=== PATIENT | male | born 1975 | race American Indian/Alaskan Native ===

== ENCOUNTER 2018-03-01 00:55 | Inpatient (IN) | payer MEDICARE, OTHER ==
[2018-03-01 01:12] VITALS: BMI 23.8
[2018-03-01] MEDS ORDERED: DiphenhydrAMINE 50 mg/ml Inj IM STA (02:11)
[2018-03-01 02:38] LABS: BASO # 0.01 K/mm3 (0.0-2.0); BASO % 0.2 % (0.0-3.0); EOS # 0.1 (0.0-0.7); EOS % 0.8 % (1.5-5.0); GRAN # 4.06 (1.4-6.5); GRAN % 67.6 % (50.0-68.0); HEMOGLOBIN 16.2 g/dL (14.0-18.0); LYMPH # 1.6 (1.2-3.4); LYMPH % 26.6 % (22.0-35.0); MEAN CELL VOLUME 80.8 fl (80.0-105.0); MEAN CORPUSCULAR HEMOGLOBIN 28.6 pg (25.0-35.0); MEAN CORPUSCULAR HGB CONC 35.4 g/dl (31.0-37.0); MEAN PLATELET VOLUME 9.7 fl (7.0-11.0); MONO # 0.3 (0.1-0.6); MONO % 4.8 % (1.0-6.0); RBC 5.67 10^6/uL (3.5-6.1); RED CELL DISTRIBUTION WIDTH 12.2 % (11.5-14.5)
[2018-03-01 02:47] LABS: ACETAMINOPHEN < 10.0 ug/ml (10.0-20.0); SALICYLATE < 1 mg/dL (2.0-20.0)
[2018-03-01 02:48] LABS: ALB/GLOB RATIO 1.3 (1.1-1.8); ALBUMIN 4.8 g/dL (3.0-4.8); ALT/SGPT 55 U/L (7-56); AST/SGOT 40 U/L (17-59); BLOOD UREA NITROGEN 9 mg/dL (7-21); CALCIUM 10.2 mg/dL (8.4-10.5); GFR AFRICAN-AMERICAN > 60; GFR NON-AFRICAN AMERICAN > 60
[2018-03-01 03:00] LABS: INR 0.93 (0.93-1.08); PROTHROMBIN TIME 10.6 SECONDS (9.4-12.5)
[2018-03-01] MEDS ORDERED: Lidocaine 1% Inj (20ml) SC STA (05:46)
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
[2018-03-01] MEDS ORDERED: TDAP Vaccine 0.5 mL Syr IM ONE (06:06)
[2018-03-01 06:44] LABS: BARBITURATES, UR NEGATIVE (NEGATIVE); BENZODIAZEPINES, UR NEGATIVE (NEGATIVE); OPIATES, UR NEGATIVE (NEGATIVE); PHENCYCLIDINE, UR NEGATIVE (NEGATIVE)
--- NOTE | 2018-03-01 08:08 | RAD ---
HISTORY: MEDICAL CLEARANCE COMPARISON: No prior. FINDINGS: LUNGS: No active pulmonary disease. PLEURA: No significant pleural effusion identified, no pneumothorax apparent. CARDIOVASCULAR: Normal. OSSEOUS STRUCTURES: No significant abnormalities. VISUALIZED UPPER ABDOMEN: Normal. OTHER FINDINGS: None. IMPRESSION: No acute cardiopulmonary disease appreciated.
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
[2018-03-01] MEDS ORDERED: Multivitamin (MVI) 10 ML, Thiamine 100 MG, Folic Acid 1 MG in Sodium Chloride 0.9% 1,00... IV ONE ×2 (10:56→23:20)
[2018-03-01] MEDS ORDERED: Thiamine 100 mg/ml Inj IM STA (10:57)
[2018-03-01 11:43] LABS: FREE T4 1.45 ng/dL (0.78-2.19)
[2018-03-01] MEDS: Insulin Lispro (humaLOG) LOW Coverage SC SCH ×3 (12:30→23:12)
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
--- NOTE | 2018-03-01 16:18 | CP.PCM.CON ---
History of Present Illness - History of Present Illness History of Present Illness: SPINE CONSULT Pt seen and examined. Full consult dictated. Robinson-J collar ordered. Pt may be OOB and ambulate once cleared to do so. Must wear collar 21/06 for 2-3 months. Other option is surgery but pt would lose >50% of lateral rotation as well as flexion/extension with posterior fusion. Therefore will try bracing and see pt in 1 week for f/u x-ray of C-spine Past Patient History - Past Social History Smoking Status: Smoker Currrent Status Unknown - PSYCHIATRIC Hx Substance Use: No Meds Allergies/Adverse Reactions: Allergies Allergy/AdvReac Type Severity Reaction Status Date / Time Unobtainable Allergy Verified 03/01/18 01:47 - Medications Medications: Current Medications Heparin Sodium (Porcine) (Heparin) 5,000 units SC Q12 JMAES PRN Reason: Protocol Multivitamins/Vitamin C 10 ml/Thiamine HCl 100 mg/ Folic Acid 1 mg/ Sodium Chloride 1,011.2 mls @ 100 mls/hr IV .Q10H7M ONE Stop: 03/01/18 21:02 Last Admin: 03/01/18 12:38 Dose: 100 mls/hr Insulin Human Lispro (Humalog Low) 0 units SC ACHS JAMES PRN Reason: Protocol Last Admin: 03/01/18 12:30 Dose: 3 units Lorazepam (Ativan) 2 mg IVP Q6H PRN; Protocol PRN Reason: Anxiety Neomycin/Polymyxin/Bacitracin (Neosporin Triple Antibiotic Oint) 0 gm TOP BID [facility] Pantoprazole Sodium (Protonix Ec Tab) 40 mg PO 0600 [facility] Results - Vital Signs Recent Vital Signs: Last Vital Signs Temp 98.2 F 03/01/18 10:16 Pulse 78 03/01/18 10:50 Resp 16 03/01/18 10:50 BP 121/76 03/01/18 10:50 Pulse Ox 99 03/01/18 10:50 - Labs Result Diagrams: 03/01/18 02:25 03/01/18 02:25 Labs: Laboratory Results - last 24 hr 03/01/18 03/01/18 12:08 15:58 POC Glucose (mg/dL) 294 H 181 H
[2018-03-01] MEDS ORDERED: Pneumococcal 23-Valent Vaccine IM ONE (17:13)
[2018-03-01] MEDS: Bacitracin/Neomycin/Polymyxin Oint(30GM) TOP SCH (17:27)
--- NOTE | 2018-03-01 19:19 | CARD ---
APPROVED REPORT EKG Measurement Heart [id number] <Conclusion> Sinus tachycardia Septal infarct, age undetermined Abnormal ECG
[2018-03-02] MEDS: Pantoprazole 40 mg EC Tab PO SCH (05:28)
[2018-03-02 07:25] LABS: BASO # 0.01 K/mm3 (0.0-2.0); BASO % 0.1 % (0.0-3.0); EOS # 0.1 (0.0-0.7); EOS % 1.2 % (1.5-5.0); GRAN % 59.4 % (50.0-68.0); HEMOGLOBIN 13.7 g/dL (14.0-18.0); LYMPH # 2.1 (1.2-3.4); LYMPH % 31.4 % (22.0-35.0); MEAN CELL VOLUME 80.7 fl (80.0-105.0); MEAN CORPUSCULAR HEMOGLOBIN 28.1 pg (25.0-35.0); MEAN CORPUSCULAR HGB CONC 34.8 g/dl (31.0-37.0); MEAN PLATELET VOLUME 9.6 fl (7.0-11.0); MONO # 0.5 (0.1-0.6); MONO % 7.9 % (1.0-6.0); RBC 4.88 10^6/uL (3.5-6.1); RED CELL DISTRIBUTION WIDTH 12.2 % (11.5-14.5); WHITE BLOOD COUNT 6.7 10^3/ul (4.5-11.0)
[2018-03-02 07:26] LABS: ALB/GLOB RATIO 1.2 (1.1-1.8); ALBUMIN 3.6 g/dL (3.0-4.8); ALT/SGPT 39 U/L (7-56); AST/SGOT 37 U/L (17-59); BLOOD UREA NITROGEN 14 mg/dL (7-21); CALCIUM 9.5 mg/dL (8.4-10.5); GFR AFRICAN-AMERICAN > 60; GFR NON-AFRICAN AMERICAN > 60
--- NOTE | 2018-03-02 08:22 | CON ---
DATE: 03/01/2018 REASON FOR CONSULTATION: Fracture of C1. HISTORY OF PRESENT ILLNESS: Patient is a 42-year young gentleman who states he had a lot to drink last night and passed out and fell. He states he does not recall anything that happened earlier in the day. He states this is not the first time he has passed out after drinking. He presently is not complaining of any pain. The workup in the emergency room with a CAT scan demonstrated a fracture of C1. Therefore, this consultation was requested. PAST MEDICAL HISTORY: Significant for diabetes. He states he is on metformin and glipizide at home. He states he was diagnosed when he was 15, although the medical records states he was diagnosed 10 years ago. MEDICATIONS: Otherwise, he states he is on no prescription medications. ALLERGIES: HE HAS NO KNOWN ALLERGIES. PAST SURGICAL HISTORY: No past surgical history. SOCIAL HISTORY: He states he smokes half a pack of cigarettes a day and he has been doing that since he was 15. He states he only drinks beer, but does it on a daily basis. Denies any other drug usage. PHYSICAL EXAMINATION: He is in a hard collar. He is moving both upper and lower extremities actively. He has significant amount of swelling around his left eye with bruising on his face. LABORATORY DATA: Patient had CAT of his cervical spine done this morning. It demonstrates fractures of the anterior ring of C1. There is some anterior displacement. C2 still seems to be centered within the C1 ring, so that there is no obvious disruption of the ligaments there. IMPRESSION AND PLAN: At this point, his fracture should heal with good immobilization. Obviously, there has to be a concern given his drinking. I explained to him that his fracture may be slow to heal or not heal given his diabetes, but that will be true also if we do surgery in terms of the bone fusing as well as the wound healing. Also, at his young age, he would lose over half of his ability to laterally rotate his head if we had to do an occiput to C2 or C3 fusion and he would also lose a fair amount of upward and downward gaze. Therefore, we will place him in a [place] J collar, which he must wear multimedia artist. He should be seen in a week with a recheck x-ray and be certain that he is maintaining his overall alignment. We will probably want to get a followup CAT scan in 6 to 8 weeks to be certain that again he is maintaining alignment and see if we start to see any appearance of healing taking place. I explained this to him in the presence of his one-to-one observer. He seemed to understand everything I was telling him and did not ask any questions. Once he has a collar on, he can be mobilized as tolerated and can be discharged once he is cleared. Thank you for allowing me to participate in the care of your patient. Demetris Hobson MD [facility]
[2018-03-02] MEDS: Bacitracin/Neomycin/Polymyxin Oint(30GM) TOP SCH ×2 (08:55→18:10)
[2018-03-02] MEDS: Insulin Lispro (humaLOG) LOW Coverage SC SCH ×4 (10:55→22:24)
--- NOTE | 2018-03-02 15:03 | CP.PCM.PN ---
<RashardAldo - Last Filed: 03/02/18 14:56> Subjective - Date & Time of Evaluation Date of Evaluation: 03/02/18 Time of Evaluation: 14:57 - Subjective Subjective: Medicine progress note: Patient seen and examined at bedside. Patient has C-collar in place. [place] collar will arrive tomorrow. Patient himself has no complaints, but per nursing , patient was getting agitated and trying to pull out his iv. Currently patient states that his pain is improved and he would like some ice chips. Objective - Vital Signs/Intake and Output Vital Signs (last 24 hours): Temp Pulse Resp BP Pulse Ox 98 F 82 20 162/90 H 97 03/02/18 08:03 03/02/18 08:03 03/02/18 08:03 03/02/18 08:03 03/02/18 08:03 Intake and Output: 03/02/18 03/02/18 06:59 18:59 Intake Total 1200 Balance 1200 - Medications Medications: Current Medications Heparin Sodium (Porcine) (Heparin) 5,000 units SC Q12 JAMES PRN Reason: Protocol Last Admin: 03/02/18 10:56 Dose: 5,000 units Insulin Human Lispro (Humalog Low) 0 units SC ACHS JAMES PRN Reason: Protocol Last Admin: 03/02/18 10:55 Dose: Not Given Lorazepam (Ativan) 2 mg IVP Q4 PRN; Protocol PRN Reason: Anxiety Last Admin: 03/02/18 01:14 Dose: 2 mg Neomycin/Polymyxin/Bacitracin (Neosporin Triple Antibiotic Oint) 0 gm TOP BID [facility] Last Admin: 03/01/18 17:27 Dose: 1 applic Pantoprazole Sodium (Protonix Ec Tab) 40 mg PO 0600 [facility] Last Admin: 03/02/18 05:28 Dose: Not Given - Labs Labs: 03/02/18 06:40 03/02/18 06:40 PT 10.6 SECONDS (9.4-12.5) 03/01/18 02:25 INR 0.93 (0.93-1.08) 03/01/18 02:25 - Constitutional Appears: Well - Head Exam Head Exam: ATRAUMATIC, NORMAL INSPECTION, NORMOCEPHALIC - Eye Exam Eye Exam: EOMI, Normal appearance, PERRL Pupil Exam: NORMAL ACCOMODATION, PERRL - ENT Exam ENT Exam: Mucous Membranes Moist, Normal Exam - Neck Exam Neck Exam: Full ROM, Normal Inspection. absent: Lymphadenopathy - Respiratory Exam Respiratory Exam: Clear to Ausculation Bilateral, NORMAL BREATHING PATTERN - Cardiovascular Exam Cardiovascular Exam: REGULAR RHYTHM, +S1, +S2. absent: Murmur - GI/Abdominal Exam GI & Abdominal Exam: Soft, Normal Bowel Sounds. absent: Tenderness - Extremities Exam Extremities Exam: Full ROM, Normal Capillary Refill, Normal Inspection. absent : Joint Swelling, Pedal Edema - Back Exam Back Exam: NORMAL INSPECTION - Neurological Exam Neurological Exam: Alert, Awake, CN II-XII Intact, Normal Gait, Oriented x3 - Psychiatric Exam Psychiatric exam: Normal Affect, Normal Mood - Skin Skin Exam: Dry, Intact, Normal Color, Warm Assessment and Plan - Assessment and Plan (Free Text) Assessment: Assessment and Plan 42 year old male with Diabetes (x 10 years) and ETOH abuse (started around this New Year) was found sleeping on the pavement. Patient admitted to drinking a large amount of alcohol. He was brought in by EMS. He sustained an abrasion on the L eye. Patient endorsed that he fell on his face and denies getting into a fight. A C1 fracture was found, patient needs rigid collar until [place] collar arrives per neurosurgery and spine surgery. Patient became agitated in the ED. He was given 5 haldol 2 ativan, on 1:1 watch. Comminuted displaced anterior C1 fracture. - C-spine CT: Comminuted displaced fracture of anterior arch of C1. No subluxation or encroachment of spinal canal. - Dr. Rojo, ED, endorsed that Dr. Day, neurosurgeon, stated that no plan for surgery and he would see the patient in the afternoon. - Neuro check q4 - Patient will be on hard collar until [place] collar arrives tomorrow; no surgery right now, as a fusion would result in decreased flexion, extension, and lateral movement Will do collar trial for 2-3 months L Nasal bone fractures, non displaced, with facial swelling - NPO with ice chips until cleared by speech/swallow therapist - ENT consulted because per PATIENT ACCESS DIRECTOR recommendations, patient still having trouble swallowing ENT: Dr. Forman Eyebrow laceration s/p suture - Triple Antibiotic ointment BID ETOH abuse - SHAINA 277 - CIWA q4 - Banana bag - Ativan 2q4 PRN - Starting tomorrow AM, Ativan 1 q6 JAMES - ETOH cessation counseling. Consider providing AA materials - 1:1 maintained for agitation - aspiration/fall precaution Diabetes - Pending A1C - ISSS-low Falls likely secondary to ETOH abuse - PT eval Bilateral proptosis - outpatient workup. Check TSH/Free t4. No retrobulbar hematoma on CT TSH: Low normal; FT4: normal HIV is negative Prophylaxis - heparin, protonix <Rangasamy,Ajantha - Last Filed: 03/02/18 17:50> Objective - Vital Signs/Intake and Output Vital Signs (last 24 hours): Temp Pulse Resp BP Pulse Ox 98.3 F 90 20 124/88 98 03/02/18 14:00 03/02/18 14:00 03/02/18 14:00 03/02/18 14:00 03/02/18 14:00 Intake and Output: 03/02/18 03/02/18 06:59 18:59 Intake Total 1200 Balance 1200 - Medications Medications: Current Medications Heparin Sodium (Porcine) (Heparin) 5,000 units SC Q12 JAMES PRN Reason: Protocol Last Admin: 03/02/18 10:56 Dose: 5,000 units Multivitamins/Vitamin C 10 ml/Thiamine HCl 100 mg/ Folic Acid 1 mg/ Sodium Chloride 1,011.2 mls @ 100 mls/hr IV .Q10H7M ONE Stop: 03/03/18 02:42 Insulin Human Lispro (Humalog Low) 0 units SC ACHS JAMES PRN Reason: Protocol Last Admin: 03/02/18 16:20 Dose: Not Given Lorazepam (Ativan) 2 mg IVP Q4 PRN; Protocol PRN Reason: Anxiety Last Admin: 03/02/18 01:14 Dose: 2 mg Lorazepam (Ativan) 1 mg IVP Q6H JAMES PRN Reason: Protocol Neomycin/Polymyxin/Bacitracin (Neosporin Triple Antibiotic Oint) 0 gm TOP BID JAMES Last Admin: 03/01/18 17:27 Dose: 1 applic Pantoprazole Sodium (Protonix Ec Tab) 40 mg PO 0600 JAMES Last Admin: 03/02/18 05:28 Dose: Not Given - Labs Labs: 03/02/18 06:40 03/02/18 06:40 PT 10.6 SECONDS (9.4-12.5) 03/01/18 02:25 INR 0.93 (0.93-1.08) 03/01/18 02:25 Attending/Attestation - Attestation I have personally seen and examined this patient.: Yes I have fully participated in the care of the patient.: Yes I have reviewed all pertinent clinical information, including history, physical exam and plan: Yes Notes (Text): 03/02/18 17:49 attending note; Patient seen and examined with resident. Patient is a 42 year old male with PMHx diabetes and alcohol abuse, multiple falls previously is admitted with fall after intoxication. CT head is negative. CT maxillofacial is negative. Patient had C1 cervical spine fracture. Spine surgery evaluation appreciated. [place] J collar ordered. Keep patient nothing by mouth. Speech and swallow evaluation appreciated. ENT evaluation recommended. Left eyelid swelling. Monitor closely. Alcohol abuse; complete alcohol cessation is strongly advised. CIWA Protocol. continue IV banana bag. Continue IV Ativan when necessary. No neurological deficit. Continue one-to-one for observation.
[2018-03-02] MEDS ORDERED: Multivitamin (MVI) 10 ML, Thiamine 100 MG, Folic Acid 1 MG in Sodium Chloride 0.9% 1,00... IV ONE (16:36)
--- NOTE | 2018-03-03 02:50 | CON ---
DATE: HISTORY OF PRESENT ILLNESS: This is a 42-year-old male with a significant past medical history of diabetes and alcohol use, was found passed out on the ground after a fall, questionable passing out versus tripping with loss of consciousness and a noted significant C-spine deformity with significant swelling of the left eye and nose. Patient was admitted to the hospital and seen here in consultation as stated. RADIOGRAPHIC INFORMATION: CAT scan as noted was done and reveals a normal nasal bone and facial bone without fracture as stated; this was on 03/01/2018. CT of maxillofacial bones without contrast, no comparison and nasal bones were unremarkable. There is soft tissue swelling in anterior left orbit, palpable with no maxillary and/or facial bone fractures. Patient is seen at his bedside with continued left facial swelling. Normal nasal dorsum with mild left-sided swelling, patent nasal vestibule with a midline septum. Neck was noted to be in collar, soft on palpation without crepitus. Left-sided eye swelling, as stated on CT, without visual complaint. MEDICATIONS: He states he is on no prescription medications. ALLERGIES: HE HAS NO KNOWN ALLERGIES. PAST SURGICAL HISTORY: No past surgical history. SOCIAL HISTORY: He states he smokes half a pack of cigarettes a day and has been doing that since he was 15. He states he is only drinking beer, but does it on a daily basis. As stated on his physical exam as noted above and at the time of the exam, a neck collar was noted for retraction. CAT scan of the cervical spine demonstrates fracture of the anterior ring of C1 and a consultation from Neurosurgery secondary to that fracture site and progress note from primary medical doctor. Patient at this particular point does deny any type of difficulty with swallowing and the supple neck. PHYSICAL EXAMINATION: VITAL SIGNS: Temperature 98, pulse 82, respiratory rate 20, blood pressure 160/90, pulse ox of 90. CONSTITUTION: Appears well, but he is depressed and quiet. HEENT: Normocephalic, left eye swelling, but eye noted to be intact with rotation. No cranial deficits noted and midline nose with patent vestibule and midline septum. Consultation from ENT stated nasal bone fracture, nondisplaced. No surgical reduction needed at this time. PLAN: Recommendation for the patient as an outpatient to follow up in the office if needed. At this particular point, there is no further following of this patient and we will follow as an outpatient as discussed. Trevor Forman DO [facility] # [id number]
[2018-03-03] MEDS: Pantoprazole 40 mg EC Tab PO SCH (05:00)
[2018-03-03 07:10] LABS: BASO # 0.01 K/mm3 (0.0-2.0); BASO % 0.1 % (0.0-3.0); EOS # 0.2 (0.0-0.7); EOS % 2.5 % (1.5-5.0); GRAN # 4.06 (1.4-6.5); GRAN % 60.6 % (50.0-68.0); HEMOGLOBIN 13.3 g/dL (14.0-18.0); LYMPH # 1.9 (1.2-3.4); LYMPH % 27.7 % (22.0-35.0); MEAN CORPUSCULAR HEMOGLOBIN 27.5 pg (25.0-35.0); MEAN PLATELET VOLUME 9.4 fl (7.0-11.0); MONO # 0.6 (0.1-0.6); MONO % 9.1 % (1.0-6.0); RBC 4.83 10^6/uL (3.5-6.1); WHITE BLOOD COUNT 6.7 10^3/ul (4.5-11.0)
[2018-03-03 07:12] LABS: ALB/GLOB RATIO 1.1 (1.1-1.8); ALBUMIN 3.5 g/dL (3.0-4.8); ALT/SGPT 35 U/L (7-56); AST/SGOT 33 U/L (17-59); BLOOD UREA NITROGEN 14 mg/dL (7-21); CALCIUM 9.7 mg/dL (8.4-10.5); GFR AFRICAN-AMERICAN > 60; GFR NON-AFRICAN AMERICAN > 60
[2018-03-03] MEDS ORDERED: Multivitamin (MVI) 10 ML, Thiamine 100 MG, Folic Acid 1 MG in Sodium Chloride 0.9% 1,00... IV ONE (07:45)
[2018-03-03] MEDS ORDERED: Magnesium Sulfate 2 GM in Sodium Chloride 0.9% 100 ML IV ONE (09:11)
[2018-03-03] MEDS: Insulin Lispro (humaLOG) LOW Coverage SC SCH ×4 (10:03→22:38)
[2018-03-03] MEDS: Bacitracin/Neomycin/Polymyxin Oint(30GM) TOP SCH ×2 (10:04→18:36)
--- NOTE | 2018-03-03 13:47 | CP.PCM.PN ---
<RashardAldo - Last Filed: 03/03/18 13:25> Subjective - Date & Time of Evaluation Date of Evaluation: 03/03/18 Time of Evaluation: 13:25 - Subjective Subjective: Medicine progress note: Dr. Moser Patient seen and examined at bedside. Per nursing, patient was getting agitated overnight, pulling at his IV and C-collar. One prn ativan dose was given around 2A. Patient still getting agitated on and off, but is not demonstarting signs of withdrawal. Patient denies any acute complaints besides mild pain Objective - Vital Signs/Intake and Output Vital Signs (last 24 hours): Temp Pulse Resp BP Pulse Ox 98.2 F 87 20 129/58 L 99 03/03/18 06:00 03/03/18 06:00 03/03/18 06:00 03/03/18 06:00 03/03/18 06:00 Intake and Output: 03/03/18 03/03/18 06:59 18:59 Intake Total 1200 Balance 1200 - Medications Medications: Current Medications Heparin Sodium (Porcine) (Heparin) 5,000 units SC Q12 JAMES PRN Reason: Protocol Last Admin: 03/03/18 10:02 Dose: 5,000 units Multivitamins/Vitamin C 10 ml/Thiamine HCl 100 mg/ Folic Acid 1 mg/ Sodium Chloride 1,011.2 mls @ 100 mls/hr IV .Q10H7M ONE Stop: 03/03/18 17:51 Last Admin: 03/03/18 10:03 Dose: 100 mls/hr Potassium Chloride (Potassium Chloride 10 Meq/100 Ml) 10 meq in 100 mls @ 50 mls/hr IVPB Q4H JAMES Stop: 03/03/18 13:59 Last Admin: 03/03/18 09:00 Dose: 50 mls/hr Insulin Human Lispro (Humalog Low) 0 units SC ACHS JAMES PRN Reason: Protocol Last Admin: 03/03/18 10:03 Dose: Not Given Lorazepam (Ativan) 2 mg IVP Q4 PRN; Protocol PRN Reason: Anxiety Last Admin: 03/03/18 02:16 Dose: 2 mg Lorazepam (Ativan) 1 mg IVP Q6H JAMES PRN Reason: Protocol Last Admin: 03/03/18 08:25 Dose: 1 mg Neomycin/Polymyxin/Bacitracin (Neosporin Triple Antibiotic Oint) 0 gm TOP BID [facility] Last Admin: 03/03/18 10:04 Dose: 1 applic Pantoprazole Sodium (Protonix Ec Tab) 40 mg PO 0600 [facility] Last Admin: 03/03/18 05:00 Dose: Not Given - Labs Labs: 03/03/18 06:30 03/03/18 06:30 PT 10.6 SECONDS (9.4-12.5) 03/01/18 02:25 INR 0.93 (0.93-1.08) 03/01/18 02:25 - Constitutional Appears: Well - Head Exam Head Exam: ATRAUMATIC, NORMAL INSPECTION, NORMOCEPHALIC - Eye Exam Eye Exam: EOMI, Periorbital tenderness, PERRL. absent: Normal appearance ( Patient has bilateral periocular bruises), Nystagmus Pupil Exam: NORMAL ACCOMODATION, PERRL - ENT Exam ENT Exam: Mucous Membranes Moist, Normal Exam - Neck Exam Neck Exam: Full ROM. absent: Lymphadenopathy, Normal Inspection (Patient has C- collar in place) - Respiratory Exam Respiratory Exam: Clear to Ausculation Bilateral, NORMAL BREATHING PATTERN - Cardiovascular Exam Cardiovascular Exam: REGULAR RHYTHM, +S1, +S2. absent: Murmur - GI/Abdominal Exam GI & Abdominal Exam: Soft, Normal Bowel Sounds. absent: Tenderness - Extremities Exam Extremities Exam: Full ROM, Normal Capillary Refill, Normal Inspection. absent : Joint Swelling, Pedal Edema - Back Exam Back Exam: NORMAL INSPECTION - Neurological Exam Neurological Exam: Alert, Awake, CN II-XII Intact, Normal Gait, Oriented x3 - Psychiatric Exam Psychiatric exam: Normal Affect, Normal Mood - Skin Skin Exam: Dry, Intact, Normal Color, Warm Assessment and Plan - Assessment and Plan (Free Text) Assessment: Assessment and Plan 42 year old male with Diabetes (x 10 years) and ETOH abuse (started around this New Year) was found sleeping on the pavement. Patient admitted to drinking a large amount of alcohol. He was brought in by EMS. He sustained an abrasion on the L eye. Patient endorsed that he fell on his face and denies getting into a fight. A C1 fracture was found, patient needs rigid collar until [place] collar arrives per neurosurgery and spine surgery. Patient became agitated in the ED. He was given 5 haldol 2 ativan, on 1:1 watch. Comminuted displaced anterior C1 fracture. - C-spine CT: Comminuted displaced fracture of anterior arch of C1. No subluxation or encroachment of spinal canal. - Dr. Day, neurosurgeon: no plan for surgery - Neuro check q4 - Patient on hard collar until [place] band collar arrives; no surgery right now- fusion will decreased flexion, extension, and lateral movement Will do collar trial for 2-3 months L Nasal bone fractures, non displaced, with facial swelling - ENT consulted because per SMALL EQUIPMENT OPERATOR recommendations, patient still having trouble swallowing ENT: Dr. Forman: No acute interventions. Per Dr. Forman, patient not having trouble swallowing - Speech and swallow saw patient, passed swallow eval, carb consistent started Eyebrow laceration s/p suture - Triple Antibiotic ointment BID History of Alcohol Abuse - SHAINA 277 on admission - CIWA q4 - Banana bag - finished - Ativan 2q4 PRN, Ativan 1 q6 JAMES - Alcohol Cessation counseling. Consider providing AA materials - 1:1 maintained for agitation - aspiration/fall precaution Diabetes - Pending A1C - ISSS-low Falls likely secondary to ETOH abuse - PT eval Bilateral proptosis - outpatient workup. Check TSH/Free t4. No retrobulbar hematoma on CT TSH: Low normal; FT4: normal HIV is negative Prophylaxis - heparin, protonix Dispo: Patient will be monitored overnight for withdrawals pending [place] collar. Most likely stable for discharge tomorrow <Disha Moser - Last Filed: 03/03/18 16:53> Objective - Vital Signs/Intake and Output Vital Signs (last 24 hours): Temp Pulse Resp BP Pulse Ox 97.6 F 88 20 135/85 100 03/03/18 14:00 03/03/18 14:00 03/03/18 14:00 03/03/18 14:00 03/03/18 14:00 Intake and Output: 03/03/18 03/03/18 06:59 18:59 Intake Total 1200 Balance 1200 - Medications Medications: Current Medications Heparin Sodium (Porcine) (Heparin) 5,000 units SC Q12 JAMES PRN Reason: Protocol Last Admin: 03/03/18 10:02 Dose: 5,000 units Multivitamins/Vitamin C 10 ml/Thiamine HCl 100 mg/ Folic Acid 1 mg/ Sodium Chloride 1,011.2 mls @ 100 mls/hr IV .Q10H7M ONE Stop: 03/03/18 17:51 Last Admin: 03/03/18 10:03 Dose: 100 mls/hr Insulin Human Lispro (Humalog Low) 0 units SC ACHS JAMES PRN Reason: Protocol Last Admin: 03/03/18 14:18 Dose: Not Given Lorazepam (Ativan) 2 mg IVP Q4 PRN; Protocol PRN Reason: Anxiety Last Admin: 03/03/18 02:16 Dose: 2 mg Lorazepam (Ativan) 1 mg IVP Q6H JAMES PRN Reason: Protocol Last Admin: 03/03/18 14:17 Dose: 1 mg Neomycin/Polymyxin/Bacitracin (Neosporin Triple Antibiotic Oint) 0 gm TOP BID [facility] Last Admin: 03/03/18 10:04 Dose: 1 applic Pantoprazole Sodium (Protonix Ec Tab) 40 mg PO 0600 [facility] Last Admin: 03/03/18 05:00 Dose: Not Given - Labs Labs: 03/03/18 06:30 03/03/18 06:30 PT 10.6 SECONDS (9.4-12.5) 03/01/18 02:25 INR 0.93 (0.93-1.08) 03/01/18 02:25 Attending/Attestation - Attestation I have personally seen and examined this patient.: Yes I have fully participated in the care of the patient.: Yes I have reviewed all pertinent clinical information, including history, physical exam and plan: Yes Notes (Text): 03/03/18 16:50 attending note; Patient seen and examined with resident. Patient is a 42 year old male with PMHx diabetes and alcohol abuse, multiple falls previously is admitted with fall after intoxication. CT head is negative. CT maxillofacial is negative. Patient had C1 cervical spine fracture. Spine surgery evaluation appreciated. Speech and swallow evaluation appreciated. Continue regular diet with aspiration precaution. ENT evaluation appreciated. Alcohol abuse; complete alcohol cessation is strongly advised. CIWA Protocol. continue IV banana bag. Continue IV Ativan when necessary. Patient was agitated last night. But currently comfortable with new collar. No neurological deficit. Physical therapy evaluation requested. Possible discharge tomorrow if clinically stable. Upon discharge the patient needs follow-up with [facility]. Patient needs repeat x-ray in 1 week and follow up with neurosurgery.
[2018-03-04] MEDS: Pantoprazole 40 mg EC Tab PO SCH (06:07)
[2018-03-04 07:26] LABS: BASO # 0.01 K/mm3 (0.0-2.0); BASO % 0.2 % (0.0-3.0); EOS # 0.2 (0.0-0.7); EOS % 3.1 % (1.5-5.0); GRAN # 3.83 (1.4-6.5); HEMOGLOBIN 13.1 g/dL (14.0-18.0); LYMPH # 1.4 (1.2-3.4); LYMPH % 23.2 % (22.0-35.0); MEAN CELL VOLUME 80.3 fl (80.0-105.0); MEAN CORPUSCULAR HEMOGLOBIN 27.7 pg (25.0-35.0); MEAN CORPUSCULAR HGB CONC 34.5 g/dl (31.0-37.0); MEAN PLATELET VOLUME 9.7 fl (7.0-11.0); MONO # 0.6 (0.1-0.6); MONO % 10.5 % (1.0-6.0); RBC 4.73 10^6/uL (3.5-6.1); RED CELL DISTRIBUTION WIDTH 11.8 % (11.5-14.5); WHITE BLOOD COUNT 6.1 10^3/ul (4.5-11.0)
[2018-03-04 07:52] LABS: BLOOD UREA NITROGEN 9 mg/dL (7-21); CALCIUM 9.2 mg/dL (8.4-10.5); GFR AFRICAN-AMERICAN > 60; GFR NON-AFRICAN AMERICAN > 60
[2018-03-04] MEDS ORDERED: Potassium Chloride 20 mEq ER Tab PO ONE (08:19)
[2018-03-04] MEDS ORDERED: Magnesium Sulfate 2 GM in Sodium Chloride 0.9% 100 ML IV ONE (08:19)
[2018-03-04] MEDS: Insulin Lispro (humaLOG) LOW Coverage SC SCH ×4 (08:28→21:39)
[2018-03-04] MEDS: Bacitracin/Neomycin/Polymyxin Oint(30GM) TOP SCH ×2 (10:03→16:59)
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
--- NOTE | 2018-03-04 12:53 | PCM.RRT ---
INDUSTRIAL SERVICE TECHNICIAN Nurse Assessment - Situation Date: 03/04/18 Time INDUSTRIAL SERVICE TECHNICIAN was called: 11:50 INDUSTRIAL SERVICE TECHNICIAN Location:: [address] [place] [address] INDUSTRIAL SERVICE TECHNICIAN Called By: RN - IV IV Inserted during INDUSTRIAL SERVICE TECHNICIAN?: No - Respiratory Oxygen Delivery Method: Room Air Received Nebulizer Treatments:: No Was the Patient Ventilated with Bag/Mask 100% O2?: No Secretions Suctioned?: No Was the Patient Intubated?: No Was the Patient Placed on a Ventilator?: No - Diagnostic Test Ordered EKG: No Chest X-Ray: No CT Scan: No CPR started during INDUSTRIAL SERVICE TECHNICIAN?: No - Odd Coma Scale Coma Scale Eye Opening: Spontaneous Coma Scale Motor: Obeys Commands Movement Coma Scale Verbal: Oriented I.Reason for INDUSTRIAL SERVICE TECHNICIAN - A) Acute Change in Patient: Subjective: Patient was using bathroom and metal bar fell on his chest. It was witnessed by RN. No head trauma to patient. Patient denies loss of bowel, bladder; denies nausea or dizziness, denies any dizziness before the incident. - Neurological Status (Select all that apply): Alert, Responsive, Oriented, Verbal, Follows Commands - Respiratory Oxygen Delivery Method: Room Air - Constitutional Appears: Well, Non-toxic, No Acute Distress - Head Head Exam: ATRAUMATIC, NORMAL INSPECTION, NORMOCEPHALIC Additional Comments: I have been following patient, he has C-collar in place and multiple abrasions and contusions periorbitally, but these are all old, he has no new facial or head injuries - Eyes Eye Exam: Normal appearance, PERRL - Respiratory Exam Respiratory Exam: Clear to Ausculation Bilateral, NORMAL BREATHING PATTERN. absent: Chest Wall Tenderness - Cardiovascular Exam Cardiovascular Exam: REGULAR RHYTHM - GI/Abdominal Exam GI & Abdominal Exam: Soft, Normal Bowel Sounds. absent: Rigid, Tenderness - Neurological Exam Neurological Exam: Alert, Awake, CN II-XII Intact, Normal Gait, Oriented x3. absent: Motor Sensory Deficit - Extremities Exam Extremities Exam: Full ROM, Normal Capillary Refill, Normal Inspection Plan - Assessment of Findings&Treatment Plan 42 year old male status post bar falling on his chest. Patient denies any injury and any pain. Patient is breathing normally, patient denies any hemoptysis. Neurologically intact. No new injuries. Plan - Monitor - Neurochecks are on q4 - Will reassess the patient in two hours
--- NOTE | 2018-03-04 13:29 | CP.PCM.PN ---
Subjective - Date & Time of Evaluation Date of Evaluation: 03/04/18 Time of Evaluation: 13:26 - Subjective Subjective: pt seen and examined in bed with c collar, mild pain head left scientologist. Denies further ent issues Review of Systems - Constitutional Constitutional: absent: Fever, Chills - EENT Eyes: As Per HPI, UNREMARKABLE Ears: As Per HPI, UNREMARKABLE Nose/Mouth/Throat: As Per HPI - Cardiovascular Cardiovascular: As Per HPI - Respiratory Respiratory: As Per HPI - Musculoskeletal Musculoskeletal: As Par HPI - Integumentary Integumentary: As Per HPI - Neurological Neurological: As Per HPI Objective - Vital Signs/Intake and Output Vital Signs (last 24 hours): Temp Pulse Resp BP Pulse Ox 98 F 85 20 133/99 H 99 03/04/18 06:00 03/04/18 06:00 03/04/18 06:00 03/04/18 06:00 03/04/18 06:00 Intake and Output: 03/04/18 03/04/18 06:59 18:59 Intake Total 1200 Balance 1200 - Medications Medications: Current Medications Acetaminophen (Tylenol 325mg Tab) 650 mg PO Q6H PRN PRN Reason: Pain, Mild (1-3) Last Admin: 03/04/18 09:58 Dose: 650 mg Heparin Sodium (Porcine) (Heparin) 5,000 units SC Q12 JAMES PRN Reason: Protocol Last Admin: 03/04/18 09:56 Dose: 5,000 units Insulin Human Lispro (Humalog Low) 0 units SC ACHS JAMES PRN Reason: Protocol Last Admin: 03/04/18 12:17 Dose: 3 units Lorazepam (Ativan) 2 mg IVP Q4 PRN; Protocol PRN Reason: Anxiety Last Admin: 03/03/18 22:21 Dose: 2 mg Lorazepam (Ativan) 1 mg IVP Q6H JAMES PRN Reason: Protocol Last Admin: 03/04/18 08:28 Dose: 1 mg Lorazepam (Ativan) 1 mg PO Q6H JAMES PRN Reason: Protocol Methadone HCl (Methadone) 10 mg PO TID PRN PRN Reason: Pain, moderate (4-7) Neomycin/Polymyxin/Bacitracin (Neosporin Triple Antibiotic Oint) 0 gm TOP BID [facility] Last Admin: 03/04/18 10:03 Dose: 1 applic Nicotine (Nicoderm Cq) 1 patch TD DAILY [facility] Last Admin: 03/04/18 12:17 Dose: 1 patch Pantoprazole Sodium (Protonix Ec Tab) 40 mg PO 0600 [facility] Last Admin: 03/04/18 06:07 Dose: Not Given - Labs Labs: 03/04/18 06:45 03/04/18 06:45 PT 10.6 SECONDS (9.4-12.5) 03/01/18 02:25 INR 0.93 (0.93-1.08) 03/01/18 02:25 - Constitutional Appears: Well, Non-toxic - Head Exam Additional comments: swelling left scientologist, with laceration - Eye Exam Eye Exam: EOMI, Normal appearance, PERRL Pupil Exam: NORMAL ACCOMODATION, PERRL - ENT Exam ENT Exam: Mucous Membranes Moist - Neck Exam Additional comments: c collar - Respiratory Exam Respiratory Exam: NORMAL BREATHING PATTERN Assessment and Plan (1) Alcohol intoxication Status: Acute (2) C1 cervical fracture Status: Acute (3) Eyebrow laceration Status: Acute (4) Nasal bone fracture Status: Acute (5) Contusion of head Status: Acute - Assessment and Plan (Free Text) Plan: conservative management and ice. will monitor
[2018-03-05] MEDS: Pantoprazole 40 mg EC Tab PO SCH (05:48)
[2018-03-05 07:25] LABS: BASO # 0.01 K/mm3 (0.0-2.0); BASO % 0.2 % (0.0-3.0); EOS # 0.2 (0.0-0.7); EOS % 3.5 % (1.5-5.0); GRAN # 3.07 (1.4-6.5); HEMOGLOBIN 13.4 g/dL (14.0-18.0); LYMPH # 1.6 (1.2-3.4); LYMPH % 28.9 % (22.0-35.0); MEAN CELL VOLUME 79.8 fl (80.0-105.0); MEAN CORPUSCULAR HEMOGLOBIN 27.4 pg (25.0-35.0); MEAN CORPUSCULAR HGB CONC 34.4 g/dl (31.0-37.0); MEAN PLATELET VOLUME 9.3 fl (7.0-11.0); MONO # 0.6 (0.1-0.6); MONO % 10.4 % (1.0-6.0); RBC 4.89 10^6/uL (3.5-6.1); RED CELL DISTRIBUTION WIDTH 11.7 % (11.5-14.5); WHITE BLOOD COUNT 5.4 10^3/ul (4.5-11.0)
[2018-03-05 07:48] LABS: ALB/GLOB RATIO 1.2 (1.1-1.8); ALBUMIN 3.5 g/dL (3.0-4.8); ALT/SGPT 32 U/L (7-56); AST/SGOT 26 U/L (17-59); BLOOD UREA NITROGEN 7 mg/dL (7-21); CALCIUM 9.5 mg/dL (8.4-10.5); GFR AFRICAN-AMERICAN > 60; GFR NON-AFRICAN AMERICAN > 60
[2018-03-05] MEDS: Insulin Lispro (humaLOG) LOW Coverage SC SCH ×4 (08:29→22:04)
[2018-03-05] MEDS: Bacitracin/Neomycin/Polymyxin Oint(30GM) TOP SCH ×2 (10:04→17:29)
--- NOTE | 2018-03-05 14:47 | CP.PCM.PN ---
<Santosh Lua - Last Filed: 03/05/18 14:44> Subjective - Date & Time of Evaluation Date of Evaluation: 03/05/18 Time of Evaluation: 14:44 - Subjective Subjective: Medicine Progress Note: Patient seen and assessed at bedside. Patient was noted to have pulled out his IV access overnight and refused further IV access be obtained. Patient is without complaints at this time and denies fevers, chills, headache, changes in his vision, chest pain, SOB, cough, abdominal pain, N/V/D/C, changes in urinary color/frequency, dysuria, any skin changes or any numbness/tingling/weakness of any extremity. Objective - Vital Signs/Intake and Output Vital Signs (last 24 hours): Temp Pulse Resp BP Pulse Ox 98.2 F 63 20 127/89 100 03/05/18 08:00 03/05/18 08:00 03/05/18 08:00 03/05/18 08:00 03/05/18 08:00 - Medications Medications: Current Medications Acetaminophen (Tylenol 325mg Tab) 650 mg PO Q6H PRN PRN Reason: Pain, Mild (1-3) Last Admin: 03/05/18 09:59 Dose: 650 mg Folic Acid (Folic Acid) 1 mg PO DAILY [facility] Heparin Sodium (Porcine) (Heparin) 5,000 units SC Q12 JAMES PRN Reason: Protocol Last Admin: 03/05/18 09:59 Dose: 5,000 units Insulin Human Lispro (Humalog Low) 0 units SC ACHS [facility] PRN Reason: Protocol Last Admin: 03/05/18 08:29 Dose: 1 units Lorazepam (Ativan) 1 mg PO Q6H JAMES PRN Reason: Protocol Last Admin: 03/05/18 08:28 Dose: 1 mg Multivitamins/Minerals (Therapeutic-M Tab) 1 tab PO 0800 [facility] Neomycin/Polymyxin/Bacitracin (Neosporin Triple Antibiotic Oint) 0 gm TOP BID [facility] Last Admin: 03/05/18 10:04 Dose: 1 applic Nicotine (Nicoderm Cq) 1 patch TD DAILY [facility] Last Admin: 03/05/18 09:59 Dose: 1 patch Pantoprazole Sodium (Protonix Ec Tab) 40 mg PO 0600 [facility] Last Admin: 03/05/18 05:48 Dose: Not Given Thiamine HCl (Vitamin B1 Tab) 100 mg PO DAILY [facility] - Labs Labs: 03/05/18 07:00 03/05/18 07:00 PT 10.6 SECONDS (9.4-12.5) 03/01/18 02:25 INR 0.93 (0.93-1.08) 03/01/18 02:25 - Constitutional Appears: Non-toxic, No Acute Distress - Head Exam Head Exam: NORMOCEPHALIC. absent: ATRAUMATIC (Erythema and edema to left supraorbital ridge with noted interval improvement), NORMAL INSPECTION - Eye Exam Eye Exam: EOMI. absent: Normal appearance Pupil Exam: NORMAL ACCOMODATION, PERRL - ENT Exam ENT Exam: Mucous Membranes Moist, Normal Exam - Neck Exam Neck Exam: absent: Full ROM (Collar in place), Normal Inspection - Respiratory Exam Respiratory Exam: Clear to Ausculation Bilateral, NORMAL BREATHING PATTERN. absent: Accessory Muscle Use, Rales, Rhonchi, Wheezes - Cardiovascular Exam Cardiovascular Exam: REGULAR RHYTHM, RRR, +S1, +S2. absent: Bradycardia, Tachycardia, Clicks, Diastolic murmur, Gallop, Irregular Rhythm, JVD, Rubs, +S4 , Murmur - GI/Abdominal Exam GI & Abdominal Exam: Soft, Normal Bowel Sounds. absent: Tenderness - Extremities Exam Extremities Exam: Full ROM, Normal Capillary Refill, Normal Inspection. absent : Calf Tenderness, Joint Swelling, Pedal Edema, Tenderness - Neurological Exam Neurological Exam: Alert, Awake, CN II-XII Intact, Oriented x3 - Psychiatric Exam Psychiatric exam: Normal Affect, Normal Mood - Skin Skin Exam: Intact, Warm Assessment and Plan - Assessment and Plan (Free Text) Assessment: 42 year old AA male with a past medical history significant for DM2 and alcohol abuse who was admitted after sustaining a fracture of C1 s/p fall and acute alcohol intoxication. Plan: 1. Comminuted Displaced Anterior Fracture of C1 s/p Fall -CT Cervical Spine showed comminuted displaced fracture of anterior arch of C1 without subluxation or encroachment of spinal canal -CT Maxillofacial and CT Head negative for any other acute intracranial findings -Continue cervical collar for duration of two to three months -Continue Tylenol PRN for pain control -Continue Bacitracin ointment and wound care for superficial lacerations -Neurochecks Q4 -Patient to follow up with Neurosurgery one week after discharge for repeat Cervical Spine X-Ray -Neurosurgery and ENT consulted, all recommendations appreciated -PT/OT recommending MIRELA upon discharge 2. Alcohol Abuse/Withdrawal -Serum Alcohol (on admission): 277 -Continue Ativan 1mg PO Q6H -Continue PO supplementation of folic acid, thiamine and -Continue CIWA assessments -Continue fall and aspiration precautions -Continue 1:1 observation as needed 3. History of DM2 -ISS-Low and Accuchecks ACHS -Carbohydrate Consistent Diet -Hemoglobin A1c: 12.6 -Will need outpatient follow up upon discharge 4. History of Tobacco Abuse -Continue Nicoderm CQ GI Prophylaxis: Protonix DVT Prophylaxis: Heparin Patient seen and case discussed with attending, Dr. Moser. <Disha Moser - Last Filed: 03/05/18 16:31> Objective - Vital Signs/Intake and Output Vital Signs (last 24 hours): Temp Pulse Resp BP Pulse Ox 98.2 F 63 20 127/89 100 03/05/18 08:00 03/05/18 08:00 03/05/18 08:00 03/05/18 08:00 03/05/18 08:00 Intake and Output: 03/05/18 03/05/18 06:59 18:59 Intake Total 1260 Output Total 1625 Balance -365 - Medications Medications: Current Medications Acetaminophen (Tylenol 325mg Tab) 650 mg PO Q6H PRN PRN Reason: Pain, Mild (1-3) Last Admin: 03/05/18 09:59 Dose: 650 mg Folic Acid (Folic Acid) 1 mg PO DAILY [facility] Heparin Sodium (Porcine) (Heparin) 5,000 units SC Q12 JAMES PRN Reason: Protocol Last Admin: 03/05/18 09:59 Dose: 5,000 units Insulin Human Lispro (Humalog Low) 0 units SC ACHS [facility] PRN Reason: Protocol Last Admin: 03/05/18 12:30 Dose: 3 units Lorazepam (Ativan) 1 mg PO Q4 PRN; Protocol PRN Reason: Agitation Multivitamins/Minerals (Therapeutic-M Tab) 1 tab PO 0800 [facility] Neomycin/Polymyxin/Bacitracin (Neosporin Triple Antibiotic Oint) 0 gm TOP BID [facility] Last Admin: 03/05/18 10:04 Dose: 1 applic Nicotine (Nicoderm Cq) 1 patch TD DAILY [facility] Last Admin: 03/05/18 09:59 Dose: 1 patch Pantoprazole Sodium (Protonix Ec Tab) 40 mg PO 0600 [facility] Last Admin: 03/05/18 05:48 Dose: Not Given Thiamine HCl (Vitamin B1 Tab) 100 mg PO DAILY [facility] - Labs Labs: 03/05/18 07:00 03/05/18 07:00 PT 10.6 SECONDS (9.4-12.5) 03/01/18 02:25 INR 0.93 (0.93-1.08) 03/01/18 02:25 Attending/Attestation - Attestation I have personally seen and examined this patient.: Yes I have fully participated in the care of the patient.: Yes I have reviewed all pertinent clinical information, including history, physical exam and plan: Yes Notes (Text): 03/05/18 16:31 attending note; Patient seen and examined with resident. Patient is a 42 year old male with PMHx diabetes and alcohol abuse, multiple falls previously is admitted with fall after intoxication. CT head is negative. CT maxillofacial is negative. Patient had C1 cervical spine fracture. Spine surgery evaluation appreciated. Speech and swallow evaluation appreciated. Continue regular diet with aspiration precaution. ENT evaluation appreciated. Continue conservative management. Alcohol abuse; complete alcohol cessation is strongly advised. CIWA Protocol. continue IV banana bag. Continue IV Ativan when necessary. Patient was agitated last night. But currently comfortable with new collar. No neurological deficit. Physical therapy evaluation appreciated. Unsteady on gait. Monitor closely.
[2018-03-06] MEDS: Pantoprazole 40 mg EC Tab PO SCH (06:23)
[2018-03-06] MEDS: Multivitamin With Minerals Tab PO SCH (08:55)
[2018-03-06] MEDS: Insulin Lispro (humaLOG) LOW Coverage SC SCH ×4 (09:00→21:52)
[2018-03-06] MEDS: Bacitracin/Neomycin/Polymyxin Oint(30GM) TOP SCH ×2 (09:10→17:55)
--- NOTE | 2018-03-06 10:43 | CP.PCM.PN ---
<Santosh Lua - Last Filed: 03/06/18 10:40> Subjective - Date & Time of Evaluation Date of Evaluation: 03/06/18 Time of Evaluation: 10:40 - Subjective Subjective: Medicine Progress Note: Patient seen and assessed at bedside. No acute events noted overnight by patient or nursing staff. Patient notably with more participation in conversation with medicine team. States he has had similar alcohol induced falls in the past, including two years ago when he was in a rehab facility for one year. Patient is without complaints at this time and denies fevers, chills, headache, changes in his vision, chest pain, SOB, cough, abdominal pain, N/V/D/C , changes in urinary color/frequency, dysuria, any skin changes or any numbness/ tingling/weakness of any extremity. Objective - Vital Signs/Intake and Output Vital Signs (last 24 hours): Temp Pulse Resp BP Pulse Ox 98 F 87 20 121/86 96 03/06/18 06:00 03/06/18 06:00 03/06/18 06:00 03/06/18 06:00 03/06/18 06:00 - Medications Medications: Current Medications Acetaminophen (Tylenol 325mg Tab) 650 mg PO Q6H PRN PRN Reason: Pain, Mild (1-3) Last Admin: 03/05/18 17:28 Dose: 650 mg Folic Acid (Folic Acid) 1 mg PO DAILY [facility] Last Admin: 03/06/18 09:01 Dose: 1 mg Heparin Sodium (Porcine) (Heparin) 5,000 units SC Q12 [facility] PRN Reason: Protocol Last Admin: 03/06/18 09:01 Dose: 5,000 units Insulin Human Lispro (Humalog Low) 0 units SC ACHS [facility] PRN Reason: Protocol Last Admin: 03/06/18 09:00 Dose: 3 units Lorazepam (Ativan) 1 mg PO Q4 PRN; Protocol PRN Reason: Agitation Last Admin: 03/06/18 09:12 Dose: 1 mg Multivitamins/Minerals (Therapeutic-M Tab) 1 tab PO 0800 [facility] Last Admin: 03/06/18 08:55 Dose: 1 tab Neomycin/Polymyxin/Bacitracin (Neosporin Triple Antibiotic Oint) 0 gm TOP BID [facility] Last Admin: 03/06/18 09:10 Dose: 1 applic Nicotine (Nicoderm Cq) 1 patch TD DAILY [facility] Last Admin: 03/06/18 09:01 Dose: 1 patch Pantoprazole Sodium (Protonix Ec Tab) 40 mg PO 0600 [facility] Last Admin: 03/06/18 06:23 Dose: 40 mg Thiamine HCl (Vitamin B1 Tab) 100 mg PO DAILY [facility] Last Admin: 03/06/18 09:01 Dose: 100 mg - Labs Labs: 03/05/18 07:00 03/05/18 07:00 PT 10.6 SECONDS (9.4-12.5) 03/01/18 02:25 INR 0.93 (0.93-1.08) 03/01/18 02:25 - Constitutional Appears: Non-toxic, No Acute Distress - Head Exam Head Exam: NORMOCEPHALIC. absent: ATRAUMATIC (Left brow wound dressing clean, dry and intact) - Eye Exam Eye Exam: EOMI, Normal appearance Pupil Exam: NORMAL ACCOMODATION, PERRL Additional comments: Erythema and edema to left supraorbital ridge with noted interval improvement - ENT Exam ENT Exam: Mucous Membranes Moist, Normal Exam - Neck Exam Neck Exam: absent: Full ROM ([place] collar in place), Normal Inspection - Respiratory Exam Respiratory Exam: Clear to Ausculation Bilateral, NORMAL BREATHING PATTERN. absent: Accessory Muscle Use, Rales, Rhonchi, Wheezes - Cardiovascular Exam Cardiovascular Exam: REGULAR RHYTHM, RRR, +S1, +S2. absent: Bradycardia, Tachycardia, Clicks, Diastolic murmur, Gallop, Irregular Rhythm, JVD, Rubs, +S4 , Murmur - GI/Abdominal Exam GI & Abdominal Exam: Soft, Normal Bowel Sounds. absent: Distended, Firm, Guarding, Rigid, Tenderness, Rebound - Extremities Exam Extremities Exam: Full ROM, Normal Capillary Refill, Normal Inspection. absent : Calf Tenderness, Joint Swelling, Pedal Edema, Tenderness - Back Exam Back Exam: NORMAL INSPECTION - Neurological Exam Neurological Exam: Alert, Awake, Oriented x3 - Psychiatric Exam Psychiatric exam: Normal Affect, Normal Mood - Skin Skin Exam: Dry, Intact, Normal Color, Warm Assessment and Plan - Assessment and Plan (Free Text) Assessment: 42 year old AA male with a past medical history significant for DM2 and alcohol abuse who was admitted after sustaining a fracture of C1 s/p fall and acute alcohol intoxication. Plan: 1. Comminuted Displaced Anterior Fracture of C1 s/p Fall -CT Cervical Spine showed comminuted displaced fracture of anterior arch of C1 without subluxation or encroachment of spinal canal -CT Maxillofacial and CT Head negative for any other acute intracranial findings -Continue cervical collar ([place]) for duration of two to three months -Continue Tylenol PRN for pain control -Continue Bacitracin ointment and wound care for superficial lacerations -Neurochecks Q4 -Patient to follow up with Neurosurgery one week after discharge for repeat Cervical Spine X-Ray -Neurosurgery and ENT consulted, all recommendations appreciated -PT/OT recommending MIRELA upon discharge 2. Alcohol Abuse/Withdrawal -Serum Alcohol (on admission): 277 -Continue Ativan 1mg PO Q6H -Continue PO supplementation of folic acid, thiamine and -Continue CIWA assessments -Continue fall and aspiration precautions -Continue 1:1 observation as needed 3. History of DM2 -ISS-Low and Accuchecks ACHS -Carbohydrate Consistent Diet -Hemoglobin A1c: 12.6 -Will need outpatient follow up upon discharge 4. History of Tobacco Abuse -Continue Nicoderm CQ GI Prophylaxis: Protonix DVT Prophylaxis: Heparin Patient seen and case discussed with attending, Dr. Moser. <Disha Moser - Last Filed: 03/06/18 14:18> Objective - Vital Signs/Intake and Output Vital Signs (last 24 hours): Temp Pulse Resp BP Pulse Ox 98 F 87 20 121/86 96 03/06/18 06:00 03/06/18 06:00 03/06/18 06:00 03/06/18 06:00 03/06/18 06:00 - Medications Medications: Current Medications Acetaminophen (Tylenol 325mg Tab) 650 mg PO Q6H PRN PRN Reason: Pain, Mild (1-3) Last Admin: 03/05/18 17:28 Dose: 650 mg Folic Acid (Folic Acid) 1 mg PO DAILY [facility] Last Admin: 03/06/18 09:01 Dose: 1 mg Heparin Sodium (Porcine) (Heparin) 5,000 units SC Q12 [facility] PRN Reason: Protocol Last Admin: 03/06/18 09:01 Dose: 5,000 units Insulin Human Lispro (Humalog Low) 0 units SC ACHS [facility] PRN Reason: Protocol Last Admin: 03/06/18 12:44 Dose: 2 units Lorazepam (Ativan) 1 mg PO Q4 PRN; Protocol PRN Reason: Agitation Last Admin: 03/06/18 09:12 Dose: 1 mg Multivitamins/Minerals (Therapeutic-M Tab) 1 tab PO 0800 [facility] Last Admin: 03/06/18 08:55 Dose: 1 tab Neomycin/Polymyxin/Bacitracin (Neosporin Triple Antibiotic Oint) 0 gm TOP BID [facility] Last Admin: 03/06/18 09:10 Dose: 1 applic Nicotine (Nicoderm Cq) 1 patch TD DAILY [facility] Last Admin: 03/06/18 09:01 Dose: 1 patch Pantoprazole Sodium (Protonix Ec Tab) 40 mg PO 0600 [facility] Last Admin: 03/06/18 06:23 Dose: 40 mg Thiamine HCl (Vitamin B1 Tab) 100 mg PO DAILY [facility] Last Admin: 03/06/18 09:01 Dose: 100 mg - Labs Labs: 03/05/18 07:00 03/05/18 07:00 PT 10.6 SECONDS (9.4-12.5) 03/01/18 02:25 INR 0.93 (0.93-1.08) 03/01/18 02:25 Attending/Attestation - Attestation I have personally seen and examined this patient.: Yes I have fully participated in the care of the patient.: Yes I have reviewed all pertinent clinical information, including history, physical exam and plan: Yes Notes (Text): 03/06/18 14:17 attending note; Patient seen and examined with resident. Patient is a 42 year old male with PMHx diabetes and alcohol abuse, multiple falls previously is admitted with fall after intoxication. CT head is negative. CT maxillofacial is negative. Patient had C1 cervical spine fracture. Spine surgery evaluation appreciated. Speech and swallow evaluation appreciated. Continue regular diet with aspiration precaution. ENT evaluation appreciated. Continue conservative management. Alcohol abuse; complete alcohol cessation is strongly advised. CIWA Protocol. Continue by mouth Ativan. Patient is much calmer today. PT evaluation appreciated. Still unsteady on his gait. Subacute rehabilitation recommended. We will follow up with piano case maker and tomorrow for discharge planning. Physical therapy evaluation appreciated. Unsteady on gait. Monitor closely.
[2018-03-06 23:03] VITALS: RESP 20
[2018-03-07] MEDS: Pantoprazole 40 mg EC Tab PO SCH (05:21)
[2018-03-07 07:47] VITALS: BP 114/77; PULSE 87; TEMP 97.9; O2SAT 97
[2018-03-07] MEDS: Insulin Lispro (humaLOG) LOW Coverage SC SCH ×2 (08:11→14:33)
[2018-03-07] MEDS: Multivitamin With Minerals Tab PO SCH (09:48)
[2018-03-07] MEDS: Bacitracin/Neomycin/Polymyxin Oint(30GM) TOP SCH (09:53)
--- NOTE | 2018-03-07 12:46 | CP.PCM.DIS ---
<Jojo Klein - Last Filed: 03/07/18 17:56> Provider - Provider Date of Admission: 03/01/18 09:04 Attending physician: Disha Moser MD Consults: Neurosurgery - Dr. Day ENT - Dr. Forman Time Spent in preparation of Discharge (in minutes): 40 Diagnosis - Discharge Diagnosis (1) Alcohol intoxication Status: Resolved (2) C1 cervical fracture Status: Acute (3) Contusion of head Status: Resolved (4) Eyebrow laceration Status: Acute (5) Nasal bone fracture Status: Acute Hospital Course - Lab Results Lab Results: Most Recent Lab Values WBC 5.4 10^3/ul (4.5-11.0) 03/05/18 07:00 RBC 4.89 10^6/uL (3.5-6.1) 03/05/18 07:00 Hgb 13.4 g/dL (14.0-18.0) L 03/05/18 07:00 Hct 39.0 % (42.0-52.0) L 03/05/18 07:00 MCV 79.8 fl (80.0-105.0) L 03/05/18 07:00 MCH 27.4 pg (25.0-35.0) 03/05/18 07:00 MCHC 34.4 g/dl (31.0-37.0) 03/05/18 07:00 RDW 11.7 % (11.5-14.5) 03/05/18 07:00 Plt Count 206 10^3/uL (120.0-450.0) 03/05/18 07:00 MPV 9.3 fl (7.0-11.0) 03/05/18 07:00 Gran % 57.0 % (50.0-68.0) 03/05/18 07:00 Lymph % (Auto) 28.9 % (22.0-35.0) 03/05/18 07:00 [place] % (Auto) 10.4 % (1.0-6.0) H 03/05/18 07:00 Eos % (Auto) 3.5 % (1.5-5.0) 03/05/18 07:00 Baso % (Auto) 0.2 % (0.0-3.0) 03/05/18 07:00 Gran # 3.07 (1.4-6.5) 03/05/18 07:00 Lymph # (Auto) 1.6 (1.2-3.4) 03/05/18 07:00 [place] # (Auto) 0.6 (0.1-0.6) 03/05/18 07:00 Eos # (Auto) 0.2 (0.0-0.7) 03/05/18 07:00 Baso # (Auto) 0.01 K/mm3 (0.0-2.0) 03/05/18 07:00 PT 10.6 SECONDS (9.4-12.5) 03/01/18 02:25 INR 0.93 (0.93-1.08) 03/01/18 02:25 Sodium 136 mmol/L (132-148) 03/05/18 07:00 Potassium 3.8 mmol/L (3.6-5.0) 03/05/18 07:00 Chloride 101 mmol/L (98-107) 03/05/18 07:00 Carbon Dioxide 25 mmol/L (21-33) 03/05/18 07:00 Anion Gap 13 (10-20) 03/05/18 07:00 BUN 7 mg/dL (7-21) 03/05/18 07:00 Creatinine 0.6 mg/dl (0.8-1.5) L 03/05/18 07:00 Est GFR ( Amer) > 60 03/05/18 07:00 Est GFR (Non-Af Amer) > 60 03/05/18 07:00 POC Glucose (mg/dL) 247 mg/dL (65-110) H 03/07/18 11:35 Random Glucose 234 mg/dL (70-110) H 03/05/18 07:00 Hemoglobin A1c 12.6 % (4.2-6.5) H 03/01/18 10:30 Calcium 9.5 mg/dL (8.4-10.5) 03/05/18 07:00 Magnesium 1.6 mg/dL (1.7-2.2) L 03/05/18 07:00 Total Bilirubin 0.4 mg/dL (0.2-1.3) 03/05/18 07:00 AST 26 U/L (17-59) 03/05/18 07:00 ALT 32 U/L (7-56) 03/05/18 07:00 Alkaline Phosphatase 73 U/L (38-126) 03/05/18 07:00 Total Protein 6.6 g/dL (5.8-8.3) 03/05/18 07:00 Albumin 3.5 g/dL (3.0-4.8) 03/05/18 07:00 Globulin 3.1 gm/dL 03/05/18 07:00 Albumin/Globulin Ratio 1.2 (1.1-1.8) 03/05/18 07:00 Free T4 1.45 ng/dL (0.78-2.19) 03/01/18 02:25 TSH 3rd Generation 0.41 mIU/mL (0.46-4.68) L 03/01/18 02:25 Salicylates < 1 mg/dL (2.0-20.0) L 03/01/18 02:25 Urine Opiates Screen Negative (NEGATIVE) 03/01/18 06:03 Urine Methadone Screen Negative (NEGATIVE) 03/01/18 06:03 Acetaminophen < 10.0 ug/ml (10.0-20.0) L 03/01/18 02:25 Ur Barbiturates Screen Negative (NEGATIVE) 03/01/18 06:03 Ur Phencyclidine Scrn Negative (NEGATIVE) 03/01/18 06:03 Ur Amphetamines Screen Negative (NEGATIVE) 03/01/18 06:03 U Benzodiazepines Scrn Negative (NEGATIVE) 03/01/18 06:03 U Oth Cocaine Metabols Negative (NEGATIVE) 03/01/18 06:03 U Cannabinoids Screen Negative (NEGATIVE) 03/01/18 06:03 Alcohol, Quantitative 277 mg/dL (0-10) H 03/01/18 02:25 HIV 1&2 Antibody Screen Negative (NEGATIVE) 03/01/18 11:00 - Hospital Course Hospital Course: This patient is a 42 year old male with a PMHx of EtOH abuse and diabetes type 2 admitted for evaluation and treatment of C1 fracture s/p fall and acute alcohol intoxication/withdrawal. Cervical Spine CT showed comminuted displaced fracture of anterior arch of C1 without subluxation or encroachment of spinal canal. Maxillofacial and Head CT were negative for any other acute intracranial findings. Patient was placed on Ativan taper for alcohol withdrawal. Neurosurgery and ENT were consulted on the case. Patient was put on a Nikolski-J collar and was instructed to wear this collar 21/06 for 2-3 months per spine consult. Spine consult noted that surgery would cause a loss of more than 50% of lateral rotation as well as flexion/extension w/ posterior fusion. HgA1c was found to be > 12. Patient was started on Lantus, and his Metformin dose was changed to 500mg BID. Patient has been transferred to subacute rehab facility for physical therapy. Patient has been advised to follow up with his PCP and Neurosurgery within 1 week. He is agreeable to plan and medications. Patient discussed with Attending Discharge Exam - Head Exam Head Exam: NORMOCEPHALIC. absent: ATRAUMATIC (Left brow wound dressing clean, dry and intact) - Additional Findings Additional findings: - ENT Exam ENT Exam: Mucous Membranes Moist, Normal Exam - Neck Exam Neck Exam: absent: Full ROM ([place] collar in place), Normal Inspection - Respiratory Exam Respiratory Exam: Clear to Ausculation Bilateral, NORMAL BREATHING PATTERN. absent: Accessory Muscle Use, Rales, Rhonchi, Wheezes - Cardiovascular Exam Cardiovascular Exam: REGULAR RHYTHM, RRR, +S1, +S2. absent: Bradycardia, Tachycardia, Clicks, Diastolic murmur, Gallop, Irregular Rhythm, JVD, Rubs, +S4 , Murmur - GI/Abdominal Exam GI & Abdominal Exam: Soft, Normal Bowel Sounds. absent: Distended, Firm, Guarding, Rigid, Tenderness, Rebound - Extremities Exam Extremities Exam: Full ROM, Normal Capillary Refill, Normal Inspection. absent : Calf Tenderness, Joint Swelling, Pedal Edema, Tenderness - Back Exam Back Exam: NORMAL INSPECTION - Neurological Exam Neurological Exam: Alert, Awake, Oriented x3 - Psychiatric Exam Psychiatric exam: Normal Affect, Normal Mood - Skin Skin Exam: Dry, Intact, Normal Color, Warm Discharge Plan - Discharge Medications Prescriptions: Bacitracin/Neomycin/Polymyxin [Neosporin Triple Antibiotic Oint] 1 gm TOP BID # 1 tube Insulin Glargine, Recombina [Lantus] 5 unit SC HS #1 vial Metformin HCl [Glucophage] 500 mg PO BID #60 tablet - Follow Up Plan Condition: STABLE Disposition: TRANSF TO SNF Instructions: Nose Fracture, Neck Fracture, Type 1 Diabetes, Wound Care, Alcohol Withdrawal (DC), Alcohol Abuse and Alcoholism (DC) Additional Instructions: 1. Please follow up with the neurosurgeon who saw you here 2. Please follow up with the [facility] clinic 3. Please get a repeat neck x-ray in one week 4. Please abstain from alcohol Referrals: [facility] [Provider Group] [facility], [Non-Staff] - Buck Day MD [Staff Provider] - <Zoë Tatum B - Last Filed: 03/08/18 12:15> Provider - Provider Date of Admission: 03/01/18 09:04 Attending physician: Disha Moser MD Hospital Course - Lab Results Lab Results: Most Recent Lab Values WBC 5.4 10^3/ul (4.5-11.0) 03/05/18 07:00 RBC 4.89 10^6/uL (3.5-6.1) 03/05/18 07:00 Hgb 13.4 g/dL (14.0-18.0) L 03/05/18 07:00 Hct 39.0 % (42.0-52.0) L 03/05/18 07:00 MCV 79.8 fl (80.0-105.0) L 03/05/18 07:00 MCH 27.4 pg (25.0-35.0) 03/05/18 07:00 MCHC 34.4 g/dl (31.0-37.0) 03/05/18 07:00 RDW 11.7 % (11.5-14.5) 03/05/18 07:00 Plt Count 206 10^3/uL (120.0-450.0) 03/05/18 07:00 MPV 9.3 fl (7.0-11.0) 03/05/18 07:00 Gran % 57.0 % (50.0-68.0) 03/05/18 07:00 Lymph % (Auto) 28.9 % (22.0-35.0) 03/05/18 07:00 [place] % (Auto) 10.4 % (1.0-6.0) H 03/05/18 07:00 Eos % (Auto) 3.5 % (1.5-5.0) 03/05/18 07:00 Baso % (Auto) 0.2 % (0.0-3.0) 03/05/18 07:00 Gran # 3.07 (1.4-6.5) 03/05/18 07:00 Lymph # (Auto) 1.6 (1.2-3.4) 03/05/18 07:00 [place] # (Auto) 0.6 (0.1-0.6) 03/05/18 07:00 Eos # (Auto) 0.2 (0.0-0.7) 03/05/18 07:00 Baso # (Auto) 0.01 K/mm3 (0.0-2.0) 03/05/18 07:00 PT 10.6 SECONDS (9.4-12.5) 03/01/18 02:25 INR 0.93 (0.93-1.08) 03/01/18 02:25 Sodium 136 mmol/L (132-148) 03/05/18 07:00 Potassium 3.8 mmol/L (3.6-5.0) 03/05/18 07:00 Chloride 101 mmol/L (98-107) 03/05/18 07:00 Carbon Dioxide 25 mmol/L (21-33) 03/05/18 07:00 Anion Gap 13 (10-20) 03/05/18 07:00 BUN 7 mg/dL (7-21) 03/05/18 07:00 Creatinine 0.6 mg/dl (0.8-1.5) L 03/05/18 07:00 Est GFR ( Amer) > 60 03/05/18 07:00 Est GFR (Non-Af Amer) > 60 03/05/18 07:00 POC Glucose (mg/dL) 265 mg/dL (65-110) H 03/07/18 16:12 Random Glucose 234 mg/dL (70-110) H 03/05/18 07:00 Hemoglobin A1c 12.6 % (4.2-6.5) H 03/01/18 10:30 Calcium 9.5 mg/dL (8.4-10.5) 03/05/18 07:00 Magnesium 1.6 mg/dL (1.7-2.2) L 03/05/18 07:00 Total Bilirubin 0.4 mg/dL (0.2-1.3) 03/05/18 07:00 AST 26 U/L (17-59) 03/05/18 07:00 ALT 32 U/L (7-56) 03/05/18 07:00 Alkaline Phosphatase 73 U/L (38-126) 03/05/18 07:00 Total Protein 6.6 g/dL (5.8-8.3) 03/05/18 07:00 Albumin 3.5 g/dL (3.0-4.8) 03/05/18 07:00 Globulin 3.1 gm/dL 03/05/18 07:00 Albumin/Globulin Ratio 1.2 (1.1-1.8) 03/05/18 07:00 Free T4 1.45 ng/dL (0.78-2.19) 03/01/18 02:25 TSH 3rd Generation 0.41 mIU/mL (0.46-4.68) L 03/01/18 02:25 Salicylates < 1 mg/dL (2.0-20.0) L 03/01/18 02:25 Urine Opiates Screen Negative (NEGATIVE) 03/01/18 06:03 Urine Methadone Screen Negative (NEGATIVE) 03/01/18 06:03 Acetaminophen < 10.0 ug/ml (10.0-20.0) L 03/01/18 02:25 Ur Barbiturates Screen Negative (NEGATIVE) 03/01/18 06:03 Ur Phencyclidine Scrn Negative (NEGATIVE) 03/01/18 06:03 Ur Amphetamines Screen Negative (NEGATIVE) 03/01/18 06:03 U Benzodiazepines Scrn Negative (NEGATIVE) 03/01/18 06:03 U Oth Cocaine Metabols Negative (NEGATIVE) 03/01/18 06:03 U Cannabinoids Screen Negative (NEGATIVE) 03/01/18 06:03 Alcohol, Quantitative 277 mg/dL (0-10) H 03/01/18 02:25 HIV 1&2 Antibody Screen Negative (NEGATIVE) 03/01/18 11:00 Attending/Attestation - Attestation I have personally seen and examined this patient.: Yes I have fully participated in the care of the patient.: Yes I have reviewed all pertinent clinical information, including history, physical exam and plan: Yes Notes (Text): I have seen and examined the patient at bedside. Agree with the above note with the following additions/ exceptions: Briefly this is 42 year old male with history of DM-2, alcohol abuse, multiple falls in the past due to alcohol intoxication who presented s/p fall and found to have C1 cervical spine fracture. Spine surgery and ENT evaluation appreciated. Continue conservative management. Neck collar was provided. Complete alcohol cessation is strongly advised. Patient is alert, awake and oriented in time, place and person. PT recommended rehab placement. He will be discharged to [facility] today. Advised the patient to have repeat imaging in one week. Follow up with [facility] clinic within 1 week. Follow up with neurosurgeon as an outpatient. Dr Zoë Tatum
[2018-03-07] MEDS ORDERED: Insulin Detemir 100 units/ml Vial (Levemir) SC SCH (22:00)
== END 2018-03-07 17:27 | DRG 897 ==
LOC: ED 00:55 → OBSVTOIN 09:04 → ERH 09:04 → EDBD 09:04 → ERH 09:50 → 5RSO 11:23
PROVIDERS: ADMIT Internal Medicine; ATTEND Internal Medicine
PROC: 0HQ1XZZ Repair Face Skin, External Approach (ICD-10-PCS; principal; 2018-03-01)
DX: F10.229 Alcohol dependence with intoxication, unspecified (principal); S12.090A Other displaced fracture of first cervical vertebra, initial encounter for closed fracture; S02.2XXA Fracture of nasal bones, initial encounter for closed fracture; S01.112A Laceration without foreign body of left eyelid and periocular area, initial encounter; F10.239 Alcohol dependence with withdrawal, unspecified; Y90.8 Blood alcohol level of 240 mg/100 ml or more; E11.9 Type 2 diabetes mellitus without complications; H05.20 Unspecified exophthalmos; S00.93XA Contusion of unspecified part of head, initial encounter; R13.10 Dysphagia, unspecified; F17.210 Nicotine dependence, cigarettes, uncomplicated; R29.6 Repeated falls; W19.XXXA Unspecified fall, initial encounter; Y92.9 Unspecified place or not applicable